=== PATIENT | female | born 1995 | race Caucasian/White ===

== ENCOUNTER → 2021-08-28 16:56 | Outpatient (BNVA) | payer BC, SELFPAY | PROVIDERS: Family Provider Nurse Practitioner; PCP Nurse Practitioner; Visit Provider Nurse Practitioner Family | DX: Z20.822 Contact with and (suspected) exposure to COVID-19 (principal) | CPT/HCPCS: 87635 ==

== ENCOUNTER → 2023-11-17 08:42 | Outpatient (BNVA) | payer OTHER, SELFPAY | PROVIDERS: Family Provider Nurse Practitioner; PCP Family Medicine; Visit Provider Podiatrist Foot & Ankle Surgery | DX: M25.572 Pain in left ankle and joints of left foot; G89.29 Other chronic pain; M25.372 Other instability, left ankle; M21.172 Varus deformity, not elsewhere classified, left ankle; Q85.00 Neurofibromatosis, unspecified; M21.619 Bunion of unspecified foot; S93.432A Sprain of tibiofibular ligament of left ankle, initial encounter; M20.42 Other hammer toe(s) (acquired), left foot; X58.XXXA Exposure to other specified factors, initial encounter | CPT/HCPCS: 73610 ==